=== PATIENT | female | born 1965 | race Caucasian/White ===

== ENCOUNTER 2020-02-19 22:53 | Inpatient (IN) | payer BC, OTHER ==
[2020-02-19] MEDS ORDERED: NALOXONE 0.4 MG/ML 1 ML (NARCAN) VIAL ONE (22:54)
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
[2020-02-19] MEDS ORDERED: NALOXONE 2 MG/2 ML (NARCAN) SYR ONE (22:57)
[2020-02-19] MEDS ORDERED: PROPOFOL DRIP (ICU) 100 ML IV ONE (23:04)
[2020-02-19] MEDS ORDERED: NALOXONE 2 MG/2 ML (NARCAN) SYR IV ONE (23:15)
[2020-02-19] MEDS ORDERED: NALOXONE 0.4 MG/ML 1 ML (NARCAN) VIAL IV ONE (23:15)
[2020-02-19] MEDS ORDERED: PROPOFOL DRIP (ICU) 100 ML IV SCH (23:15)
[2020-02-19 23:19] LABS: BASOPHILS # (AUTO) 0.1 10^3/uL (0.0-0.1); BASOPHILS % (AUTO) 1 % (0-10); EOSINOPHILS # (AUTO) 0.3 10^3/uL (0.0-0.3); EOSINOPHILS % (AUTO) 3 % (0-10); HEMATOCRIT 41 % (35-52); HEMOGLOBIN 13.6 g/dL (11.5-16.0); LYMPHOCYTES # (AUTO) 2.2 10^3/uL (1.0-4.0); LYMPHOCYTES % (AUTO) 30 % (12-44); MEAN CORPUSCULAR HEMOGLOBIN 32 pg (25-34); MEAN CORPUSCULAR HGB CONC 34 g/dL (32-36); MEAN CORPUSCULAR VOLUME 95 fL (80-99); MEAN PLATELET VOLUME 8.6 fL (9.0-12.2); MONOCYTES # (AUTO) 0.7 10^3/uL (0.0-1.0); MONOCYTES % (AUTO) 9 % (0-12); NEUTROPHILS # (AUTO) 4.2 10^3/uL (1.8-7.8); NEUTROPHILS % (AUTO) 56 % (42-75); PLATELET COUNT 213 10^3/uL (130-400); WHITE BLOOD COUNT 7.4 10^3/uL (4.3-11.0)
[2020-02-19 23:26] LABS: ALBUMIN 4.2 GM/DL (3.2-4.5); CHLORIDE 99 MMOL/L (98-107); SODIUM 136 MMOL/L (135-145)
[2020-02-19 23:26] LABS: BILIRUBIN,URINE NEGATIVE (NEGATIVE); CLARITY,URINE CLEAR; COLOR,URINE YELLOW; GLUCOSE, URINE (UA) NEGATIVE (NEGATIVE); KETONES,URINE NEGATIVE (NEGATIVE); LEUKOCYTE ESTERASE ,URINE NEGATIVE (NEGATIVE); NITRITE,URINE NEGATIVE (NEGATIVE); PH,URINE 5.5 (5-9); PROTEIN,URINE NEGATIVE (NEGATIVE)
[2020-02-19 23:27] LABS: INR 0.9 (0.8-1.4); PROTHROMBIN TIME PATIENT 12.5 SEC (12.2-14.7)
[2020-02-19 23:28] LABS: CALCIUM 8.7 MG/DL (8.5-10.1)
[2020-02-19 23:29] LABS: GLUCOSE 99 MG/DL (70-105); TOTAL PROTEIN 6.8 GM/DL (6.4-8.2)
[2020-02-19 23:30] LABS: CARBON DIOXIDE 23 MMOL/L (21-32)
[2020-02-19 23:31] VITALS: BP 102/113
[2020-02-19 23:31] LABS: BILIRUBIN,TOTAL 0.3 MG/DL (0.1-1.0)
[2020-02-19 23:32] LABS: ALKALINE PHOSPHATASE 62 U/L (40-136); CREATININE SERUM 0.65 MG/DL (0.60-1.30); GFR ESTIMATED > 60
[2020-02-19 23:34] LABS: ACETAMINOPHEN < 10 UG/ML (10-30); BUN/CREATININE RATIO 14
[2020-02-19 23:35] LABS: SALICYLATE < 5.0 MG/DL (5.0-20.0)
[2020-02-19 23:36] LABS: ALANINE AMINOTRANSFERASE 26 U/L (0-55)
[2020-02-19 23:43] LABS: AMORPHOUS SEDIMENT,UR RARE AMOR URATES /LPF; BACTERIA,URINE NEGATIVE /HPF
[2020-02-19] MEDS ORDERED: POTASSIUM CL 10MEQ/50ML IVPB 50 ML IV ONE (23:45)
[2020-02-19 23:50] LABS: AMPHETAMINE SCREEN, URINE NEGATIVE (NEGATIVE); BARBITURATE SCREEN URINE NEGATIVE (NEGATIVE); BENZODIAZEPINES SCREEN URINE NEGATIVE (NEGATIVE); CANNABINOID SCREEN, URINE NEGATIVE (NEGATIVE); COCAINE SCREEN URINE NEGATIVE (NEGATIVE); METHADONE STAT NEGATIVE (NEGATIVE); METHAMPHETAMINE SCREEN URINE S NEGATIVE (NEGATIVE); OPIATE SCREEN URINE NEGATIVE (NEGATIVE); OXYCODONE STAT NEGATIVE (NEGATIVE); PROPOXYPHENE STAT NEGATIVE (NEGATIVE); TRICYCLIC ANTIDEPRESSANTS SCRE NEGATIVE (NEGATIVE)
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
[2020-02-20] VITALS (15 sets, daily range): BP systolic 109–188; BP diastolic 69–107
--- NOTE | 2020-02-20 00:15 | NUR ---
DR. WOLF UPDATED PT MOTHER TARA ON CONDITION AND THAT PT WILL BE ADMITTED TO ICU.
[2020-02-20] MEDS ORDERED: LACTATED RINGERS 1,000 ML IV ONE (00:24)
[2020-02-20] MEDS ORDERED: PROPOFOL DRIP (ICU) 100 ML IV SCH (02:00)
[2020-02-20] MEDS ORDERED: D5 1/2 NS W/KCL 40 MEQ/L 1,000 ML IV SCH (02:00)
[2020-02-20] MEDS ORDERED: ENOXAPARIN 40 MG/0.4 ML (LOVENOX) SYR SC SCH (02:15)
[2020-02-20 03:53] LABS: BASOPHILS % (AUTO) 1 % (0-10); EOSINOPHILS # (AUTO) 0.2 10^3/uL (0.0-0.3); EOSINOPHILS % (AUTO) 3 % (0-10); HEMATOCRIT 41 % (35-52); LYMPHOCYTES % (AUTO) 38 % (12-44); MEAN CORPUSCULAR HEMOGLOBIN 32 pg (25-34); MEAN CORPUSCULAR HGB CONC 34 g/dL (32-36); MEAN CORPUSCULAR VOLUME 93 fL (80-99); MEAN PLATELET VOLUME 8.6 fL (9.0-12.2); MONOCYTES # (AUTO) 0.4 10^3/uL (0.0-1.0); MONOCYTES % (AUTO) 8 % (0-12); NEUTROPHILS # (AUTO) 2.7 10^3/uL (1.8-7.8); NEUTROPHILS % (AUTO) 51 % (42-75); PLATELET COUNT 215 10^3/uL (130-400); WHITE BLOOD COUNT 5.3 10^3/uL (4.3-11.0)
[2020-02-20 03:56] LABS: CHLORIDE 103 MMOL/L (98-107); SODIUM 139 MMOL/L (135-145)
[2020-02-20 03:57] LABS: CALCIUM 8.8 MG/DL (8.5-10.1)
[2020-02-20 03:58] LABS: GLUCOSE 119 MG/DL (70-105); TOTAL PROTEIN 6.5 GM/DL (6.4-8.2)
[2020-02-20 03:59] LABS: CARBON DIOXIDE 20 MMOL/L (21-32)
[2020-02-20 04:00] LABS: BILIRUBIN,TOTAL 0.4 MG/DL (0.1-1.0)
[2020-02-20 04:01] LABS: PHOSPHORUS 1.9 MG/DL (2.3-4.7)
[2020-02-20 04:02] LABS: ALKALINE PHOSPHATASE 60 U/L (40-136); CREATININE SERUM 0.63 MG/DL (0.60-1.30); GFR ESTIMATED > 60
[2020-02-20 04:03] LABS: BUN/CREATININE RATIO 11
[2020-02-20 04:05] LABS: ALANINE AMINOTRANSFERASE 24 U/L (0-55)
[2020-02-20 04:26] LABS: ABG BASE EXCESS 0.6 MMOL/L (-2.5-2.5); ABG OXYGEN SATURATION 97 % (94-100); ABG PCO2 30 MMHG (35-45); ABG PH 7.51 (7.37-7.43); ABG PO2 79 MMHG (79-93); ABG TCO2 24.6 MMOL/L (21.0-31.0)
[2020-02-20 04:30] LABS: ALLENS TEST YES-POS; INSPIRED O2 21%; VENTILATOR YES
[2020-02-20] MEDS ORDERED: POTASSIUM CL 10MEQ/50ML IVPB 50 ML IV SCH ×2 (04:30→06:00)
[2020-02-20 04:31] LABS: EOSINOPHILS % (MANUAL) 2 %; LYMPHOCYTES % (MANUAL) 36 %; MONOCYTES % (MANUAL) 5 %; NEUTROPHILS % (MANUAL) 57 %; RBC MORPH NORMAL
--- NOTE | 2020-02-20 04:31 | Pulmonary Consultation ---
History of Present Illness History of Present Illness Date Seen by Provider: Feb 20, 2020 Time Seen by Provider: 04:26 Date of Admission Allergies and Home Medications Allergies Coded Allergies: No Known Drug Allergies (Unverified , 02/19/20) Past Prsmhfv-Cpqckr-Supufy Hx Past Med/Social Hx: Reviewed Nursing Past Med/Soc Hx Patient Social History Alcohol Use: Occasionally Uses Recent Foreign Travel: No Contact w/Someone Who Travel: No Recent Infectious Disease Expo: No Past Medical History Surgeries: No (Unknown) Respiratory: No (Unknown) Cardiac: No (Unknown) Neurological: No (Unknown) : No Genitourinary: No (None known) Gastrointestinal: No (Unknown) Musculoskeletal: No (Unknown) Endocrine: No (Unknown) HEENT: No (Unknown) Cancer: No (Unknown) Review of Systems Time Seen by Provider: 04:33 Sepsis Event Evaluation Height, Weight, BMI Height: '" Weight: lbs. oz. kg; BMI Method: Exam Exam Vital Signs Date Time Temp Pulse Resp B/P (MAP) Pulse Ox O2 Delivery O2 Flow Rate FiO2 02/20/20 03:56 36.0 02/20/20 02:53 Mechanical Ventilator 21.00 02/20/20 02:30 79 18 99 25 02/20/20 02:30 80 17 123/90 (101) 99 Mechanical Ventilator 25.00 02/20/20 02:15 80 18 128/99 (109) 99 Mechanical Ventilator 25.00 02/20/20 02:12 Mechanical Ventilator 25.00 02/20/20 02:02 72 88/113 02/20/20 02:00 79 18 151/88 (109) 100 Mechanical Ventilator 30.00 02/20/20 01:53 36.4 79 17 154/99 (117) 100 Mechanical Ventilator 40.00 02/20/20 01:24 37.4 72 16 88/113 (82) 100 Mechanical Ventilator 144.00 02/19/20 23:31 88 16 99 40 02/19/20 23:11 78 02/19/20 22:55 97 5 116/65 (82) 89 OxyMask 15.00 02/19/20 22:55 37.4 I & O 02/20/20 07:00 Intake Total 1150 ml Output Total 1850 ml Balance -700 ml Height & Weight Height: '" Weight: lbs. oz. kg; BMI Method: Capillary Refill: Less Than 3 Seconds Gastrointestinal: normal bowel sounds, soft; No distended Results Lab Laboratory Tests 02/19/20 23:00 02/20/20 03:33 Assessment/Plan Assessment/Plan Acute respiratory failure -Currently on vent -Propofol -- D/C -Behavioral health OD with Xanax - Drug overdose Qualified Codes: T50.904A - Poisoning by unspecified drugs, medicaments and biological substances, undetermined, initial encounter Additional Impressions: Alcohol intoxication Qualified Codes: F10.929 - Alcohol use, unspecified with intoxication, unspecified Hypokalemia Disposition: ADMITTED INPATIENT Condition: Stable JAS MACHADO DO Feb 20, 2020 04:31
[2020-02-20] MEDS ORDERED: KCL 20 MEQ TAB (K-DUR) PO SCH (06:00)
[2020-02-20] MEDS ORDERED: MAGNESIUM 1 GM/100 ML IVPB 100 ML IV SCH (06:00)
--- NOTE | 2020-02-20 06:05 | NUR ---
THIS RN AND CHARLY RT AT BEDSIDE. ALL SEDATION OFF, PT AWAKE AND FOLLOWING COMMANDS. PT EXTUBATED BY RT AT THIS TIME AND PLACED ON 5L HIGH FLOW NC.
[2020-02-20] MEDS ORDERED: POTASSIUM PHOSPHATE INJ 30 MM in NS (IVPB) 250 ML IV ONE (06:30)
[2020-02-20] MEDS ORDERED: SUCCINYLCHOLINE INJ 100 MG/5 ML SYR/VIAL INJ ONE (07:37)
[2020-02-20] MEDS ORDERED: ETOMIDATE IV SOLN 20 MG/10 ML VIAL IV ONE (07:37)
--- NOTE | 2020-02-20 07:50 | Diagnostic Imaging Report ---
Clinical indications: Patient status post intubation. Exam: Portable chest x-ray upright view. Comparisons: None. Findings: There is mild cardiomegaly and minimal pulmonary vascular prominence centrally. There is mild left basilar atelectasis. There is no definite lung infiltrate. There is no pleural effusion or pneumothorax. ET tube seen in good position with tip roughly 3.5 cm from the level of the dionisio. Feeding tube is seen with distal portion looped multiple times overlying the expected region of the gastric body. Bones show no significant abnormality. IMPRESSION: 1: ET tube and feeding tube are seen in good position. 2: There is mild left basilar atelectasis. 3: There is mild cardiomegaly and mild pulmonary vascular congestion. Dictated by: Dictated on workstation # [id number]
[2020-02-20] MEDS ORDERED: LACTATED RINGERS 1,000 ML IV SCH (08:45)
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
[2020-02-20] MEDS ORDERED: KCL 10 MEQ TAB (MICRO K) PO ONE (09:00)
[2020-02-20] MEDS ORDERED: FAMOTIDINE 20MG/2ML IV (PEPCID) IV SCH (09:00)
--- NOTE | 2020-02-20 13:15 | NUR ---
GINNY visited with patient for social service consult. GINNY was notified by Physician that the patient's nurse was going to call [facility] to set up a screener. At that time, the patient was willing to go into an inpatient psych unit; therefore, the screener stated the patient does not need screened. The patient's physician contacted Alexander to get clarification on screening process. Alexander contacted this sw to discuss case. TALI/ROGELIO visited with patient. She denies suicidal ideation at this time. She denies wanting to kill her self at this time. The patient reports that she has lost 4 friends in a time period of 6 months. The patient feels that her drinking is what triggered wanting to kill herself at that time. Patient was tearful during the meeting. She reports having a good support system with her Significant other and family. TALI/ROGELIO discussed behavioral health services for inpatient and outpatient treatment. The patient states that inpatient treatment "is not an option, I just started a new job." TALI/ROGELIO explained the process of the screener and if she is not willing that it will become an involuntary placement screen. The patient verbalized understanding. GINNY informed Alexander at [facility] that she is no longer willing for inpatient treatment. Alexander states he will come screen patient. GINNY will continue to follow for discharge planning.
[2020-02-20] MEDS ORDERED: LOSA50TA63 PO (14:34)
[2020-02-20] MEDS ORDERED: HYDR25TA4 PO (14:34)
[2020-02-20] MEDS ORDERED: FLUO40CA12 PO (14:34)
--- NOTE | 2020-02-20 14:35 | NUR ---
SPOKE WITH THE PT AND CALLED [facility] TO COMPLETE THE MED REC 08-22-2019 HCTZ 25MG #90/90DS 08-22-2019 FLUOXETINE 40MG #90/90DS 08-22-2019 LOSARTAN 50MG #30/30DS AFTER I CALLED [facility] I ASKED THE PT ABOUT THE PAST DUE FILLS. UNFORTUNATELY PT COULDNT ANSWER WHY SHE STILL HAD MEDICATION LEFT AND KEPT SAYING " I HAVE PLENTY OF MEDICATION AT HOME". WHEN I TRIED TO EXPLAIN WHAT/WHY I WAS ASKING SHE WOULD SAY SHE DIDNT KNOW
--- NOTE | 2020-02-20 15:03 | Discharge Inst-Simple/Standard ---
Discharge Inst-Standard Discharge Medications New, Converted or Re-Newed RX: Transmitted to Pharmacy Patient Instructions/Follow Up Plan of Care/Instructions/FU: Please continue to take your medications as written. Please follow up with your primary care doctor to follow up this hospital stay. Activity as Tolerated: Yes Discharge Diet: Cardiac Diet Return to The Hospital For: Thoughts of self harm or suicide, confusion, fever, chest pain, shortness of breath, if you feel you are getting worse. FERCHO YOON MD Feb 20, 2020 15:03
--- NOTE | 2020-02-20 15:07 | NUR ---
CM/SS finalized discharge. Plan: Patient will discharge home today with her two son's 02/19 with an outpatient plan with [facility]. Outpatient plan: Alexander reports that the patient is assigned to a trimming caser who will reach out to the patient chon at 8:00 p.m. for a follow up. The patient will have an intake appointment on March 06 and medication evaluation on March 07. Alexander reports during that time she will have follow up calls. No further needs at this time.
--- NOTE | 2020-02-20 16:30 | NUR ---
PT WAS EDUCATED ON DISCHARGE EDUCATION. PT STATED UNDERSTANDING. PT STATES SHE HAS NO SUICIDAL IDEATIONS. PT SON TO TAKE PT HOME. PT WALKED DOWN BY STAFF MEMBER.
== END 2020-02-20 16:48 | disposition home or self-care (01) | DRG 917 ==
LOC: EDUNIT# 22:53 → ER 22:54 → ICU 02-20
PROVIDERS: ADMIT Internal Medicine; ATTEND Internal Medicine
PROC: 0BH17EZ Insertion of Endotracheal Airway into Trachea, Via Natural or Artificial Opening (ICD-10-PCS; principal; 2020-02-19)
PROC: 5A1935Z Respiratory Ventilation, Less than 24 Consecutive Hours (ICD-10-PCS; 2020-02-19)
DX: T42.4X2A Poisoning by benzodiazepines, intentional self-harm, initial encounter (principal); J96.00 Acute respiratory failure, unspecified whether with hypoxia or hypercapnia; T51.0X2A Toxic effect of ethanol, intentional self-harm, initial encounter; F10.929 Alcohol use, unspecified with intoxication, unspecified; Y90.7 Blood alcohol level of 200-239 mg/100 ml; E87.6 Hypokalemia; I10 Essential (primary) hypertension; F41.9 Anxiety disorder, unspecified; F32.9 Major depressive disorder, single episode, unspecified; Z20.828 Contact with and (suspected) exposure to other viral communicable diseases; Z90.710 Acquired absence of both cervix and uterus
CPT/HCPCS: 31500; 36415; 51702; 71045; 80053; 80306; 80320; 80329; 81000; 82805; 83735; 84100; 84703; 85007; 85025; 85027; 85610; 87635; 93005; 94002; 99291

== ENCOUNTER → 2021-12-11 | Outpatient (CLI) | payer OTHER ==
[~2021-12-11] MED LIST: FLUO40CA12 PO; HYDR25TA4 PO; LOSA50TA63 PO
== END ==
LOC: CARD 11:02
PROVIDERS: ATTEND Internal Medicine Cardiovascular Disease
DX: R01.1 Cardiac murmur, unspecified (principal)
CPT/HCPCS: 93306